=== PATIENT | male | born 1980 | race Hispanic/Latino ===

== ENCOUNTER 2017-04-04 16:54 | Emergency (ER) | payer SELFPAY ==
[2017-04-04] MEDS ORDERED: MOTRIN PO ONE (17:18)
[2017-04-04] MEDS ORDERED: XYLOCAINE 2%/EPI 1:100,000 INFILTRATI ONE (17:18)
[2017-04-04] MEDS ORDERED: TRIPLE ANTIBIOTIC TP ONE ×2 (17:18→17:20)
[2017-04-04] MEDS ORDERED: BOOSTRIX IM ONE (17:18)
[2017-04-04] MEDS ORDERED: XYLOCAINE 2%/ EPI 1:200,000 INFILTRATI ONE (17:21)
--- NOTE | 2017-04-04 17:21 | Emergency Department Report ---
- General Chief Complaint: Wound/Laceration Stated Complaint: LACERATION Time Seen by Provider: 04/04/17 17:17 Source: patient Mode of arrival: Ambulatory Limitations: No Limitations - History of Present Illness Initial Comments: 37-year-old male past medical history hypertension since with complaint of laceration to left palm. 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 Occurred a few hours ago. Patient unsure of tetanus status. Visible laceration at left thenar eminence. Patient denies any loss of sensation in hands or fingers. Visibly ranging fingers. -: This afternoon Extremity Location: Left: Hand (left hand laceration on hypothenar ) Place: home Patient Tetanus UTD: No Context: accidental, sharp object use (switchbox assembler) Associated Symptoms: pain - Related Data Previous Rx's Medication Instructions Recorded Last Taken Type Acetaminophen/Codeine [Tylenol 1 tab PO Q6H PRN #4 tab 04/04/17 Unknown Rx /Codeine # 3 tab] Bacitracin Zinc [Antibiotic] 1 applicatio TP BID #1 oint...g. 04/04/17 Unknown Rx Cephalexin [Keflex] 500 mg PO Q12HR #14 cap 04/04/17 Unknown Rx amLODIPine [Norvasc] 5 mg PO DAILY #30 tab 04/04/17 Unknown Rx Allergies Allergy/AdvReac Type Severity Reaction Status Date / Time No Known Allergies Allergy Verified 04/04/17 17:25 ED Review of Systems ROS: Stated complaint: LACERATION Other details as noted in HPI Constitutional: denies: chills, fever Eyes: denies: eye pain, eye discharge, vision change ENT: denies: ear pain, throat pain Respiratory: denies: cough, shortness of breath, wheezing Cardiovascular: denies: chest pain, palpitations Endocrine: no symptoms reported Gastrointestinal: denies: abdominal pain, nausea, diarrhea Genitourinary: denies: urgency, dysuria Musculoskeletal: denies: back pain, joint swelling, arthralgia Skin: as per HPI. denies: rash, lesions Neurological: denies: headache, weakness, paresthesias Psychiatric: denies: anxiety, depression Hematological/Lymphatic: denies: easy bleeding, easy bruising ED Past Medical Hx - Past Medical History Previous Medical History?: No Hx Hypertension: Yes (mckayla) - Surgical History Past Surgical History?: No - Social History Smoking Status: Never Smoker Substance Use Type: None - Medications Home Medications: Home Medications Medication Instructions Recorded Confirmed Last Taken Type Acetaminophen/Codeine [Tylenol 1 tab PO Q6H PRN #4 tab 04/04/17 Unknown Rx /Codeine # 3 tab] Bacitracin Zinc [Antibiotic] 1 applicatio TP BID #1 oint...g. 04/04/17 Unknown Rx Cephalexin [Keflex] 500 mg PO Q12HR #14 cap 04/04/17 Unknown Rx amLODIPine [Norvasc] 5 mg PO DAILY #30 tab 04/04/17 Unknown Rx ED Physical Exam - General Limitations: No Limitations General appearance: alert, in no apparent distress - Head Head exam: Present: atraumatic, normocephalic - Eye Eye exam: Present: normal appearance, PERRL, EOMI - ENT ENT exam: Present: mucous membranes moist - Neck Neck exam: Present: normal inspection - Respiratory Respiratory exam: Present: normal lung sounds bilaterally. Absent: respiratory distress - Cardiovascular Cardiovascular Exam: Present: regular rate, normal rhythm. Absent: systolic murmur, diastolic murmur, rubs, gallop - GI/Abdominal GI/Abdominal exam: Present: soft, normal bowel sounds - Rectal Rectal exam: Present: deferred - Extremities Exam Extremities exam: Present: normal inspection - Expanded Upper Extremity Exam Left Shoulder Exam: Present: normal inspection, full ROM Upper Arm exam: Present: normal inspection, full ROM Elbow exam: Present: normal inspection, full ROM Forearm Wrist exam: Present: normal inspection, full ROM Hand Wrist exam: Present: normal inspection, full ROM (wrist flexion and extension intact) Hand L/R Front: 1 - Positive: laceration (laceration here with exposed subcutaneous tissue) Neuro motor exam: Present: wrist extension intact, thumb opposition intact, thumb IP flexion intact, thumb adduction intact, fingers 2-5 abduction intact, other Neurosensory exam: Present: radial nerve intact, ulnar nerve intact, median nerve intact Vascular: Present: normal capillary refill (capillary refill less than one second all fingers) - Back Exam Back exam: Present: normal inspection - Neurological Exam Neurological exam: Present: alert, oriented X3, CN II-XII intact, normal gait - Psychiatric Psychiatric exam: Present: normal affect, normal mood - Skin Skin exam: Present: warm, dry, intact, normal color. Absent: rash ED Course Vital Signs 04/04/17 04/04/17 16:57 18:44 Temperature 98.3 F Pulse Rate 97 H Blood Pressure 189/137 Blood Pressure 186/111 [Right] O2 Sat by Pulse 99 Oximetry - I & D Left Lateral Palm Hand Type of Procedure: Simple Site: left hand Blade Size: 11 I & D Procedure: betadine prep - Laceration /Wound Repair Left Palm Hand Wound Location: upper extremity (left thenar eminence) Wound Length (cm): 7 Wound's Depth, Shape: superficial, into muscle, linear Wound Explored: clean Irrigated w/ Saline (ccs): 1,000 Betadine Prep?: Yes Anesthesia: Lidocaine w/ Epi Volume Anesthetic (ccs): 4 Wound Debrided: minimal Wound Repaired With: sutures Suture Size/Type: 4:0, nylon Number of Sutures: 8 Layer Closure?: Yes Deep Layer Suture Size/Type: 3:0, chromic Number Deep Layer Sutures: 3 Sterile Dressing Applied?: Yes (triple abx ointment) Progress: Wound closed with internal and external sutures. 3 internal sutures placed for wound approximation using 3-0 Vicryl and 8 external 4-0 Prolene sutures placed. Good closure achieved. Area infiltrated with lidocaine and good local anesthesia achieved. Irrigated thoroughly with tap water and iodine mixture. The ED Medical Decision Making - Medical Decision Making A/P: left hand laceration, asymptomatic HTN 1-sutures to be removed in 7-10 days 2-tetanus updated today 3-Motrin when necessary, triple antibiotic ointment, course of keflex 4- pt advised to return to the ED for any fevers chills pus drainage erythema at site of laceration. Will start patient on low-dose amlodipine. Patient has no current chest pain palpitations shortness of breath abdominal pain headache dizziness nausea and blurry vision. Asymptomatic hypertension. I reinforced the importance of follow-up with primary care to the patient. Critical care attestation.: If time is entered above; I have spent that time in minutes in the direct care of this critically ill patient, excluding procedure time. ED Disposition Clinical Impression: Asymptomatic Laceration of hand Qualifiers: Encounter type: initial encounter Foreign body presence: without foreign body Laterality: left Qualified Code(s): S61.412A - Laceration without foreign body of left hand, initial encounter Disposition: [id number]/[id number] PSY HOSP/PSY UNIT Is pt being admited?: No Does the pt Need Aspirin: No Condition: Stable Instructions: Suture Care (ED), Laceration (ED), Hypertension (ED) Additional Instructions: Return to the ED in 7-10 days for suture removal Prescriptions: Acetaminophen/Codeine [Tylenol /Codeine # 3 tab] 1 tab PO Q6H PRN #4 tab PRN Reason: Pain amLODIPine [Norvasc] 5 mg PO DAILY #30 tab Bacitracin Zinc [Antibiotic] 1 applicatio TP BID #1 oint...g. Cephalexin [Keflex] 500 mg PO Q12HR #14 cap Referrals: [facility] [Outside] - 3-5 Days [facility] [Outside] - 3-5 Days VINOD GONZALES MD [Staff Physician] - 3-5 Days Forms: Accompanied Note Time of Disposition: 18:46
[2017-04-04] MEDS ORDERED: NORCO 5/325 PO ONE (18:32)
[2017-04-04] MEDS ORDERED: KEFLEX PO ONE (18:33)
[2017-04-04] MEDS ORDERED: NORVASC PO ONE (18:38)
[2017-04-04 19:02] VITALS: BP 140/87
== END 2017-04-04 19:01 ==
LOC: ED 16:54
DX: S61.412A Laceration without foreign body of left hand, initial encounter (principal); I10 Essential (primary) hypertension; W26.8XXA Contact with other sharp object(s), not elsewhere classified, initial encounter; Y93.89 Activity, other specified; Y92.89 Other specified places as the place of occurrence of the external cause; Y99.8 Other external cause status
CPT/HCPCS: 90471; 90715; 99282; A6250